=== PATIENT | male | born 1970 | race African-American/Black ===

== ENCOUNTER 2017-12-12 00:33 | Emergency (ER) | payer SELFPAY ==
[2017-12-12 00:40] VITALS: BP 117/79; BMI 21.7
--- NOTE | 2017-12-12 01:24 | DR.GENAD ---
HPI - PCP Primary Care Physician: NFD - Complaint/Symptoms Chief Complaint Doctors Comments: Patient presents with complaint of bilateral feet pain of recent onset. Feet swollen. 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 He now works for himself as [employer]. His feet started hurting one week ago. Denies trauma. Chief Complaint:: BILAT FOOT PAIN AND SWELLING Self Treatment fo Chief Complaint: NONE - Source History Provided: Patient - Mode of Arrival Mode of Arrival: Ambulatory - Timing Onset of Chief Complaint: 12/11/17 PMH - PMH Past Medical History: No Past Surgical History: No - Family History History of Family Medical Conditions: No - Social History Does patient currently use any type of tobacco product: Yes Have you used tobacco products in the last 12 months: Yes Type of Tobacco Use: Cigarettes Does any household member use tobacco: No Alcohol Use: None Do you use any recreational Drugs:: No Lives With: Alone Lives Where: Homeless - infectious screening In the last 2 months have you had wt loss of >10#?: NO Have you had fever, night sweats or hemotysis?: No Have you traveled outside the country in the last 6 months?: No Isolation: Standard ROS - Review of Systems Constitutional: No Symptoms Reported Eyes: No Symptoms Reported ENTM: No Symptoms Reported Respiratoy: No Symptoms Reported Cardiovascular: No Symptoms Reported Gastrointestinal/Abdominal: No Symptoms Reported Genitourinary: No Symptoms Reported Neurological: No Symptoms Reported Musculoskeletal: Foot (swollen feet) Integumentary: No Symptoms Reported Hematologic/Lymphatic: No Symptoms Reported Endocrine: No Symptoms Reported Psychiatric: No Symptoms Reported All Other Systems: Reviewed and Negative PE - Vital Signs Vitals: Temperature 98.0 F Pulse Rate 88 Respiratory Rate 16 Blood Pressure 117/79 O2 Sat by Pulse Oximetry 98 - General Limitations: No Limitations General Appearance: Alert, In No Apparent Distress - Head Head Exam: Normal Inspection, Atraumatic - Eyes Eye exam: Normal Appearance, PERRL, EOMI - ENT ENT Exam: Normal Exam External Ear Exam: Normal External Inspection TM/Canal Exam: Bilateral Normal Nose Exam: Normal Nose Exam Mouth Exam: Normal Inspection Throat Exam: Normal Inspection - Neck Neck Exam: Normal Inspection, Full ROM - Chest Chest Inspection: Normal Inspection - Respiratory Respiratory Exam: Normal Lung Sounds Bilat Respiratory Exam: Bilateral Clear to Auscultation - Cardiovascular Cardiovascular Exam: Regular Rate, Normal Rhythm - Abdominal Exam Abdominal Exam: Normal Inspection, Normal Bowel Sounds Abdominal Tenderness: negative: RUQ, RLQ, LUQ, LLQ, Epigastrium, Suprapubic, Diffuse, Mild, Moderate, Severe, Other - Extremities Extremities Exam: Normal Inspection, Full ROM - Back Back Exam: Normal Inspection, Full ROM - Neurologic Neurological Exam: Alert, Oriented X3, CN II-XII Intact - Psychiatric Psychiatric Exam: Normal Affect, Normal Mood - Skin Skin Exam: Warm, Dry, Erythema ROR - Labs Reviewed Laboratory Results Reviewed?: Yes (CRP 1.7) Result Diagrams: 12/12/17 03:37 Laboratory: WBC 6.8 X10^3/uL (3.6-10.0) 12/12/17 03:37 RBC 4.32 X10^6/uL (4.7-6.0) L 12/12/17 03:37 Hgb 13.7 g/dL (13.5-18.0) 12/12/17 03:37 Hct 39.9 % (42.0-54.0) L 12/12/17 03:37 MCV 92.5 fL (80.0-100.0) 12/12/17 03:37 MCH 31.7 pg (27.0-34.0) 12/12/17 03:37 MCHC 34.3 g/dL (33.0-35.0) 12/12/17 03:37 RDW 14.1 % (11.6-16.5) 12/12/17 03:37 Plt Count 393 X10^3/uL (150.0-450.0) 12/12/17 03:37 MPV 7.4 fL (7.4-11.0) 12/12/17 03:37 Neut % 42.0 % (42.0-75.0) 12/12/17 03:37 Lymph % 40.4 % (21.0-51.0) 12/12/17 03:37 [place] % 4.9 % (0.0-13.0) 12/12/17 03:37 Eos % 11.3 % (0.9-2.9) H 12/12/17 03:37 Baso % 1.4 % (0.2-1.0) H 12/12/17 03:37 Neut # 2.8 x10^3/uL (2.2-4.8) 12/12/17 03:37 Lymph # 2.7 X10^3/uL (1.3-2.9) 12/12/17 03:37 [place] # 0.3 x10^3/uL (0.3-0.8) 12/12/17 03:37 Eos # 0.8 x10^3/uL (0.0-0.2) H 12/12/17 03:37 Baso # 0.1 X10^3/uL (0.0-0.1) 12/12/17 03:37 Absolute Nucleated RBC 0.0 /100WBC 12/12/17 03:37 C-Reactive Protein 1.70 mg/L (0-3.0) 12/12/17 03:37 - Diagnosis Discharge Problem: Plantar fasciitis, bilateral - Discharge Plan Condition: Stable - Follow ups/Referrals Follow ups/Referrals: NFD,None [Primary Care Provider] - 3 days - Instructions
[2017-12-12 03:50] LABS: BASOPHILS # (AUTO) 0.1 X10^3/uL (0.0-0.1); BASOPHILS % (AUTO) 1.4 % (0.2-1.0); EOSINOPHILS # (AUTO) 0.8 x10^3/uL (0.0-0.2); EOSINOPHILS % (AUTO) 11.3 % (0.9-2.9); HEMATOCRIT 39.9 % (42.0-54.0); HEMOGLOBIN 13.7 g/dL (13.5-18.0); LYMPHOCYTES # (AUTO) 2.7 X10^3/uL (1.3-2.9); LYMPHOCYTES % (AUTO) 40.4 % (21.0-51.0); MEAN CORPUSCULAR HEMOGLOBIN 31.7 pg (27.0-34.0); MEAN CORPUSCULAR HGB CONC 34.3 g/dL (33.0-35.0); MEAN CORPUSCULAR VOLUME 92.5 fL (80.0-100.0); MEAN PLATELET VOLUME 7.4 fL (7.4-11.0); MONOCYTES # (AUTO) 0.3 x10^3/uL (0.3-0.8); MONOCYTES % (AUTO) 4.9 % (0.0-13.0); NEUTROPHILS # (AUTO) 2.8 x10^3/uL (2.2-4.8); PLATELET COUNT 393 X10^3/uL (150.0-450.0); RED BLOOD COUNT 4.32 X10^6/uL (4.7-6.0); RED CELL DISTRIBUTION WIDTH 14.1 % (11.6-16.5); WHITE BLOOD COUNT 6.8 X10^3/uL (3.6-10.0)
== END 2017-12-12 06:39 | disposition home or self-care (01) ==
LOC: ER 00:33
DX: M72.2 Plantar fascial fibromatosis (principal)
CPT/HCPCS: 36415; 85025; 86140; 99282